=== PATIENT | female | born 1965 | race Caucasian/White ===

== ENCOUNTER 2017-12-21 12:40 | Day surgery (SDC) | payer BC ==
[2017-12-21] MEDS ORDERED: PROPOFOL 60 ML (15:25)
[2017-12-21] MEDS ORDERED: hydrALAzine 20 MG INJ (15:25)
== END 2017-12-21 16:36 | disposition home or self-care (01) ==
LOC: GIL 12:40
DX: Z12.11 Encounter for screening for malignant neoplasm of colon (principal); K57.90 Diverticulosis of intestine, part unspecified, without perforation or abscess without bleeding; K64.8 Other hemorrhoids; K29.50 Unspecified chronic gastritis without bleeding; E11.9 Type 2 diabetes mellitus without complications; I10 Essential (primary) hypertension; E78.5 Hyperlipidemia, unspecified
CPT/HCPCS: 45378; 84703; 88305; 88312